=== PATIENT | male | born 1950 | race Two or more races ===

== ENCOUNTER 2017-02-02 09:17 | Outpatient (CLI) | payer MEDICARE, BC ==
[~2017-02-02 09:17] MED LIST: AMLODIPINE BESY10 MG ORAL; ASPIRIN81 MG ORAL; ATORVASTATIN CA20 MG ORAL; EDARBI80 MG ORAL; METOPROLOL SUC100 MG ORAL; NEXIUM40 M2 ORAL; PLAVIX75 MG ORAL
--- NOTE | 2017-02-02 09:45 | GI Progress Note ---
Assessment/Plan Problems: (1) Chronic cough ICD Codes: R05 - Cough SNOMED: 21826250 (2) GERD (gastroesophageal reflux disease) ICD Codes: K21.9 - Gastro-esophageal reflux disease without esophagitis SNOMED: 200618962 (3) Helicobacter pylori (H. pylori) ICD Codes: A04.8 - Other specified bacterial intestinal infections SNOMED: 3124132 (4) Colon polyps ICD Codes: K63.5 - Polyp of colon SNOMED: 04071055 Status: stable Status Narrative Seen with Dr. Valentine. Assessment/Plan ordered CXR reflux education increased PPI to BID RTC x 1 month repeat colonoscopy x 2 years Subjective Gastrointestinal/Abdominal: Reports: no symptoms Subjective coughing x 3 months last colonoscopy in november 2015 Objective T 97.4 BP 131/73 P 72 Denies any unintentional weight loss or changes in dietary habits. General Appearance: WD/WN, no apparent distress, alert Cardiovascular: normal rate Respiratory/Chest: normal breath sounds, no respiratory distress Abdominal Exam: normal bowel sounds, non tender, soft Extremities: normal range of motion, non-tender Luz Aguiar N.P. Feb 02, 2017 09:45
[2017-02-02 11:48] VITALS: BP 131/73
== END 2017-02-02 09:45 | disposition home or self-care (01) ==
LOC: PAN 09:17
DX: R05 Cough (principal); K21.9 Gastro-esophageal reflux disease without esophagitis; K63.5 Polyp of colon; B96.81 Helicobacter pylori [H. pylori] as the cause of diseases classified elsewhere
CPT/HCPCS: 99211

== ENCOUNTER 2017-02-02 09:44 | Outpatient (CLI) | payer MEDICARE, BC ==
--- NOTE | 2017-02-02 11:18 | Diagnostic Imaging Report ---
Indication: Dyspnea Comparison: None 2 views of the chest obtained. Findings: Cardiomediastinal silhouette and pulmonary vascularity are within normal limits for age. Calcium noted in the aorta. The diaphragmatic contour is smooth and costophrenic angles are sharp. No pleural effusions are identified. The bones are unremarkable. Impression: No acute disease
== END 2017-02-02 11:44 | disposition home or self-care (01) ==
LOC: RAD 09:44
DX: R05 Cough (principal); R06.00 Dyspnea, unspecified
CPT/HCPCS: 71020

== ENCOUNTER 2017-03-11 15:25 | Outpatient (CLI) | payer MEDICARE, BC ==
[2017-03-11 15:41] VITALS: BP 126/75
--- NOTE | 2017-03-11 16:06 | GI Progress Note ---
Assessment/Plan Problems: (1) GERD (gastroesophageal reflux disease) ICD Codes: K21.9 - Gastro-esophageal reflux disease without esophagitis SNOMED: 636282364 (2) Chronic cough ICD Codes: R05 - Cough SNOMED: 80415942 Status: stable Status Narrative Seen with Dr. Valentine. Assessment/Plan CXR reviewed with patient >> no acute findings rx Omeprazole 40mg BID RTC x 1 month Subjective Subjective occasional cough nexium works best, but has interaction with plavix Objective Last 24 Hour Vital Signs Date Time Temp Pulse Resp B/P (MAP) Pulse Ox O2 Delivery O2 Flow Rate FiO2 03/11/17 15:41 97.2 52 126/75 95 General Appearance: WD/WN, no apparent distress, alert Cardiovascular: normal rate Respiratory/Chest: normal breath sounds, no respiratory distress Abdominal Exam: normal bowel sounds, non tender, soft Extremities: normal range of motion, non-tender Luz Aguiar N.P. Mar 11, 2017 16:06
[2017-03-11 16:11] VITALS: BP 126/75
== END 2017-03-11 16:09 | disposition home or self-care (01) ==
LOC: PAN 15:25
DX: K21.9 Gastro-esophageal reflux disease without esophagitis (principal); R05 Cough
CPT/HCPCS: 99212

== ENCOUNTER 2017-11-29 13:27 | Outpatient (CLI) | payer MEDICARE, BC ==
[2017-11-29 13:30] VITALS: BP 124/73
--- NOTE | 2017-11-29 13:54 | GI Progress Note ---
Assessment/Plan Problems: (1) GERD (gastroesophageal reflux disease) ICD Codes: K21.9 - Gastro-esophageal reflux disease without esophagitis SNOMED: 685786981 (2) Chronic cough ICD Codes: R05 - Cough SNOMED: 47625241 (3) Helicobacter pylori (H. pylori) ICD Codes: A04.8 - Other specified bacterial intestinal infections SNOMED: 7105832 Status: stable Status Narrative Discussed with Dr. Valentine. Assessment/Plan EGD/colonoscopy in 11/2015. GERD Increase PPI, omeprazole 20mg to BID RTC prn repeat colonoscopy next year The patient was seen and examined at bedside and all new and available data was reviewed in the patients chart. I agree with the above findings, impression and plan. (Patient seen earlier today. Signature stamp does not reflect patient encounter time.). - Uvaldo Valentine MD Subjective Subjective chronic cough 2/2 to GERD has returned Objective T 97.8 BP 124/73 P 53 99 RA General Appearance: WD/WN, no apparent distress, alert Cardiovascular: normal rate Respiratory/Chest: normal breath sounds, no respiratory distress Abdominal Exam: normal bowel sounds, non tender, soft Extremities: normal range of motion, non-tender Magdaleno Aguiar NP Nov 29, 2017 13:54
== END 2017-11-29 13:57 | disposition home or self-care (01) ==
LOC: PAN 13:27
DX: K21.9 Gastro-esophageal reflux disease without esophagitis (principal); R05 Cough; A04.8 Other specified bacterial intestinal infections
CPT/HCPCS: 99212

== ENCOUNTER 2018-07-13 13:36 | Outpatient (CLI) | payer MEDICARE, BC ==
--- NOTE | 2018-07-13 14:04 | General Progress Note ---
Assessment/Plan Problem List: (1) CAD (coronary artery disease) ICD Codes: I25.10 - Atherosclerotic heart disease of [place] coronary artery without angina pectoris SNOMED: 55177447 (2) Colon polyps ICD Codes: K63.5 - Polyp of colon SNOMED: 65872076 (3) Chronic cough ICD Codes: R05 - Cough SNOMED: 35466969 (4) GERD (gastroesophageal reflux disease) ICD Codes: K21.9 - Gastro-esophageal reflux disease without esophagitis SNOMED: 391683278 (5) Helicobacter pylori (H. pylori) ICD Codes: A04.8 - Other specified bacterial intestinal infections SNOMED: 9577608 Assessment/Plan ppi bid + baclofen reflux measures RTC one month repeat cln in November 2018 Subjective ROS Limited/Unobtainable: Yes Allergies: Coded Allergies: No Known Allergies (Unverified , 11/22/15) Objective General Appearance: alert EENT: normal ENT inspection Neck: supple Cardiovascular: normal rate Respiratory/Chest: decreased breath sounds Abdomen: normal bowel sounds, non tender, soft Extremities: non-tender Uvaldo Valentine MD Jul 13, 2018 14:04
[2018-07-13 14:25] VITALS: BP 128/78
[2018-07-13] MEDS ORDERED: BACLOFEN10 MG ORAL (15:20)
[2018-07-13] MEDS ORDERED: OMEPRAZOLE20 M2 ORAL (15:20)
== END 2018-07-13 16:14 | disposition home or self-care (01) ==
LOC: PAN 13:36
DX: I25.10 Atherosclerotic heart disease of native coronary artery without angina pectoris (principal); K63.5 Polyp of colon; R05 Cough; K21.9 Gastro-esophageal reflux disease without esophagitis; A04.8 Other specified bacterial intestinal infections